=== PATIENT | male | born 1945 | race Caucasian/White ===

== ENCOUNTER 2017-10-10 16:09 | Inpatient (IN) ==
[2017-10-10] MEDS ORDERED: ALUMINUM/MAGNES/SIMETH MAX STR 30 ML UDCUP PO PRN (16:17)
[2017-10-10] MEDS ORDERED: DEXTROSE 50% 25 GM/50 ML VIAL IV PRN (16:17)
[2017-10-10] MEDS ORDERED: ACETAMINOPHEN 325 MG TABLET PO PRN (16:17)
[2017-10-10] MEDS ORDERED: ONDANSETRON 4 MG/2 ML VIAL IV PRN (16:17)
[2017-10-10] MEDS ORDERED: GLUCAGON 1 MG VIAL IM PRN (16:17)
[2017-10-10 18:18] LABS: Basophils # 0.1 10*3/uL (0.0-0.2); Basophils % 0.4 % (0.0-0.8); Eosinophils # 0.1 10*3/uL (0.0-0.87); Eosinophils % 0.5 % (0.00-10.9); Hematocrit 42.1 VOL% (42.0-52.0); Hemoglobin 13.6 GM/DL (14.0-18.0); Immature Granulocytes % 0.6 %; Lymphocytes # 3.2 10*3/uL (1.4-4.0); Lymphocytes % 18.7 % (21.2-54.2); Mean Corpuscular HGB Conc 32.3 GM/DL (32-36); Mean Corpuscular Hemoglobin 28 PG (27-34); Mean Corpuscular Volume 85.4 FL (87-102); Mean Platelet Volume 12.2 FL (9.6-12.0); Monocytes # 1.5 10*3/uL (0.11-0.8); Monocytes % 9.1 % (1.7-12.7); Neutrophils # 11.9 10*3/uL (1.4-7.4); Neutrophils % 70.7 % (38.7-73.9); Platelet Count 205 T/CUMM (130-400); Red Blood Count 4.93 MC/CUMM (3.8-5.5); Red Cell Distribution Width 12.8 % (9.3-17.3); White Blood Count 16.9 T/CUMM (4-12)
[2017-10-10 18:33] LABS: PT Patient Result 10.6 SECS; Partial Thromboplastin Time 27.3 SECS (0-40)
[2017-10-10 18:45] LABS: Bilirubin,Total 1.1 MG/DL (0.2-1.0); Osmolality,Calculated 275.8 MOS/KG (273-304); Potassium 4.1 MMOL/L (3.5-5.1); Total Protein 7.5 G/DL (6.4-8.3)
[2017-10-10] MEDS: CLINDAMYCIN INJ 600 MG in PREMIX 1 EACH IV SCH (21:45)
[2017-10-10] MEDS: DOCUSATE SODIUM 100 MG CAPSULE PO SCH (21:45)
[2017-10-10] MEDS: SODIUM CHLORIDE 0.45% 1,000 ML IV SCH (21:45)
[2017-10-10] MEDS: INSULIN REGULAR 100 UNIT/ML SUBCUT SCH (21:46)
[2017-10-10] MEDS: PIPERACILLIN/TAZOBACTAM 3,375 MG in SODIUM CHLORIDE 0.9% 100 ML IV SCH (23:00)
[2017-10-11] MEDS: CLINDAMYCIN INJ 600 MG in PREMIX 1 EACH IV SCH ×4 (02:57→23:49)
[2017-10-11] MEDS: HYDROmorphone 2 MG/1 ML VIAL IV PRN ×3 (03:02→17:26)
[2017-10-11] MEDS: PIPERACILLIN/TAZOBACTAM 3,375 MG in SODIUM CHLORIDE 0.9% 100 ML IV SCH ×3 (05:40→21:47)
[2017-10-11] MEDS: INSULIN REGULAR 100 UNIT/ML SUBCUT SCH ×4 (07:15→21:47)
[2017-10-11] MEDS: ASPIRIN 325 MG TABLET PO SCH (09:11)
[2017-10-11] MEDS: LISINOPRIL 2.5 MG TABLET PO SCH (09:11)
[2017-10-11] MEDS: CARVEDILOL 6.25 MG TABLET PO SCH ×2 (09:11→21:47)
[2017-10-11] MEDS: DOCUSATE SODIUM 100 MG CAPSULE PO SCH ×2 (09:11→21:47)
[2017-10-11] MEDS: PANTOPRAZOLE 40 MG TABLET PO SCH (09:11)
[2017-10-11] MEDS: SODIUM CHLORIDE 0.45% 1,000 ML IV SCH (10:35)
[2017-10-11] MEDS: ROSUVASTATIN 20 MG TABLET PO SCH (21:47)
[2017-10-12] MEDS: HYDROmorphone 2 MG/1 ML VIAL IV PRN ×4 (00:24→20:36)
[2017-10-12] MEDS: CLINDAMYCIN INJ 600 MG in PREMIX 1 EACH IV SCH ×3 (06:11→18:14)
[2017-10-12] MEDS: SODIUM CHLORIDE 0.45% 1,000 ML IV SCH ×2 (06:11→13:01)
[2017-10-12 06:23] LABS: Risk Ratio 2.67
[2017-10-12] MEDS: PIPERACILLIN/TAZOBACTAM 3,375 MG in SODIUM CHLORIDE 0.9% 100 ML IV SCH ×3 (06:47→21:48)
[2017-10-12] MEDS: INSULIN REGULAR 100 UNIT/ML SUBCUT SCH ×4 (09:19→20:23)
[2017-10-12] MEDS: CARVEDILOL 6.25 MG TABLET PO SCH ×2 (09:20→20:36)
[2017-10-12] MEDS: LISINOPRIL 2.5 MG TABLET PO SCH (09:20)
[2017-10-12] MEDS: ASPIRIN 325 MG TABLET PO SCH (09:20)
[2017-10-12] MEDS: PANTOPRAZOLE 40 MG TABLET PO SCH (09:20)
[2017-10-12] MEDS: DOCUSATE SODIUM 100 MG CAPSULE PO SCH ×2 (09:20→20:36)
[2017-10-12] MEDS: ROSUVASTATIN 20 MG TABLET PO SCH (20:36)
[2017-10-13] MEDS: CLINDAMYCIN INJ 600 MG in PREMIX 1 EACH IV SCH ×4 (00:51→20:48)
[2017-10-13] MEDS: SODIUM CHLORIDE 0.45% 1,000 ML IV SCH ×2 (00:52→16:37)
[2017-10-13 05:34] LABS: Basophils # 0.1 10*3/uL (0.0-0.2); Basophils % 0.5 % (0.0-0.8); Eosinophils # 0.3 10*3/uL (0.0-0.87); Eosinophils % 2.6 % (0.00-10.9); Hemoglobin 13.1 GM/DL (14.0-18.0); Immature Granulocytes % 0.3 %; Immature Granulocytes Absolute 0.03 #; Lymphocytes # 2.3 10*3/uL (1.4-4.0); Lymphocytes % 22.2 % (21.2-54.2); Mean Corpuscular HGB Conc 33.6 GM/DL (32-36); Mean Corpuscular Hemoglobin 28 PG (27-34); Mean Corpuscular Volume 82.6 FL (87-102); Mean Platelet Volume 12.2 FL (9.6-12.0); Monocytes # 0.9 10*3/uL (0.11-0.8); Monocytes % 8.6 % (1.7-12.7); Neutrophils # 6.9 10*3/uL (1.4-7.4); Neutrophils % 65.8 % (38.7-73.9); Platelet Count 189 T/CUMM (130-400); Red Blood Count 4.72 MC/CUMM (3.8-5.5); Red Cell Distribution Width 12.7 % (9.3-17.3); White Blood Count 10.5 T/CUMM (4-12)
[2017-10-13 06:11] LABS: Albumin 3.3 G/DL (3.4-5.0); Bilirubin,Total 0.8 MG/DL (0.2-1.0); Calcium 8.5 MG/DL (8.5-10.1); Osmolality,Calculated 278.4 MOS/KG (273-304); Potassium 4.1 MMOL/L (3.5-5.1); Total Protein 6.8 G/DL (6.4-8.3)
[2017-10-13] MEDS: PIPERACILLIN/TAZOBACTAM 3,375 MG in SODIUM CHLORIDE 0.9% 100 ML IV SCH ×3 (06:11→22:14)
[2017-10-13] MEDS: INSULIN REGULAR 100 UNIT/ML SUBCUT SCH ×3 (08:13→16:39)
[2017-10-13] MEDS: LISINOPRIL 2.5 MG TABLET PO SCH (08:46)
[2017-10-13] MEDS: CARVEDILOL 6.25 MG TABLET PO SCH ×2 (08:46→20:47)
[2017-10-13] MEDS: ASPIRIN 325 MG TABLET PO SCH (11:47)
[2017-10-13] MEDS: DOCUSATE SODIUM 100 MG CAPSULE PO SCH ×2 (11:48→20:47)
[2017-10-13] MEDS: PANTOPRAZOLE 40 MG TABLET PO SCH (11:48)
[2017-10-13] MEDS ORDERED: CLINDAMYCIN INJ 50 ML IV ONE (12:29)
[2017-10-13] MEDS: LACTATED RINGERS 1,000 ML IV SCH ×3 (12:45→16:39)
[2017-10-13] MEDS ORDERED: BUPIVACAINE 0.25% 50 ML VIAL ONE (12:49)
[2017-10-13] MEDS ORDERED: CHLORHEXIDINE 4% SOLN 118 ML BOTTLE TOP ONE (13:56)
[2017-10-13] MEDS ORDERED: METOCLOPRAMIDE 10 MG/2 ML VIAL ONE (14:04)
[2017-10-13] MEDS ORDERED: SEVOFLURANE 1 UNIT/15 MINUTE INH ONE (14:04)
[2017-10-13] MEDS ORDERED: ONDANSETRON 4 MG/2 ML VIAL ONE (14:04)
[2017-10-13] MEDS ORDERED: ACETAMINOPHEN 1,000 MG/100 ML VIAL IV ONE (14:04)
[2017-10-13] MEDS ORDERED: PROPOFOL 200 MG/20 ML VIAL IV ONE (14:04)
[2017-10-13] MEDS ORDERED: SODIUM CHLORIDE 0.9% 1,000 ML IV ONE (14:04)
[2017-10-13] MEDS ORDERED: KETOROLAC 30 MG/1 ML VIAL ONE (14:04)
[2017-10-13] MEDS ORDERED: ONDANSETRON 4 MG/2 ML VIAL IV PRN (14:21)
[2017-10-13] MEDS ORDERED: HYDROmorphone 2 MG/1 ML VIAL IV PRN (14:21)
[2017-10-13] MEDS ORDERED: SODIUM HYPOCHLORITE 0.25% IRRIG 473 ML BOTTLE TOP SCH (14:30)
[2017-10-13] MEDS: HYDROmorphone 2 MG/1 ML VIAL IV PRN ×3 (16:01→22:17)
[2017-10-13] MEDS: ROSUVASTATIN 20 MG TABLET PO SCH (20:47)
[2017-10-14] MEDS: CLINDAMYCIN INJ 600 MG in PREMIX 1 EACH IV SCH ×2 (02:27→10:15)
[2017-10-14] MEDS: SODIUM CHLORIDE 0.45% 1,000 ML IV SCH ×2 (02:28→12:45)
[2017-10-14] MEDS: PIPERACILLIN/TAZOBACTAM 3,375 MG in SODIUM CHLORIDE 0.9% 100 ML IV SCH (06:04)
[2017-10-14 06:15] LABS: Basophils # 0.1 10*3/uL (0.0-0.2); Basophils % 0.6 % (0.0-0.8); Eosinophils # 0.3 10*3/uL (0.0-0.87); Eosinophils % 2.9 % (0.00-10.9); Hemoglobin 11.6 GM/DL (14.0-18.0); Immature Granulocytes % 0.3 %; Immature Granulocytes Absolute 0.03 #; Lymphocytes # 1.9 10*3/uL (1.4-4.0); Lymphocytes % 21.6 % (21.2-54.2); Mean Corpuscular HGB Conc 32.2 GM/DL (32-36); Mean Corpuscular Hemoglobin 28 PG (27-34); Mean Corpuscular Volume 85.9 FL (87-102); Mean Platelet Volume 11.9 FL (9.6-12.0); Monocytes # 0.8 10*3/uL (0.11-0.8); Monocytes % 8.6 % (1.7-12.7); Neutrophils # 5.8 10*3/uL (1.4-7.4); Platelet Count 179 T/CUMM (130-400); Red Blood Count 4.19 MC/CUMM (3.8-5.5); Red Cell Distribution Width 12.9 % (9.3-17.3); White Blood Count 8.7 T/CUMM (4-12)
[2017-10-14 06:45] LABS: Calcium 8.3 MG/DL (8.5-10.1); Osmolality,Calculated 281.3 MOS/KG (273-304); Potassium 3.9 MMOL/L (3.5-5.1)
[2017-10-14] MEDS ORDERED: ENOXAPARIN 40 MG/0.4 ML SYRINGE SUBCUT SCH (07:53)
[2017-10-14] MEDS: CARVEDILOL 6.25 MG TABLET PO SCH (10:09)
[2017-10-14] MEDS: DOCUSATE SODIUM 100 MG CAPSULE PO SCH (10:10)
[2017-10-14] MEDS: ASPIRIN 325 MG TABLET PO SCH (10:10)
[2017-10-14] MEDS: PANTOPRAZOLE 40 MG TABLET PO SCH (10:11)
[2017-10-14] MEDS: LISINOPRIL 2.5 MG TABLET PO SCH (10:11)
[2017-10-14 11:26] VITALS: BP 141/70
== END 2017-10-14 14:45 | disposition home health service (06) | DRG 571 ==
LOC: N.3E → OBSVTOIN 16:17
PROVIDERS: ADMIT Specialist; ATTEND Specialist